=== PATIENT | female | born 1980 | race Caucasian/White ===

== ENCOUNTER 2017-04-15 02:12 | Emergency (ER) ==
[2017-04-15] MEDS ORDERED: LIDOCAINE 1 % AMP 5 ML (SUTURES) SUBCUT STA (02:14)
[2017-04-15] MEDS ORDERED: TETANUS DIPHTHERIA TOXOIDS IM ONE (02:16)
[2017-04-15 02:19] VITALS: BP 104/71; TEMP 98.4; BMI 25.0
--- NOTE | 2017-04-15 02:28 | ED.PDOC ---
General ED Provider: Dr. ESEQUIEL CARTY-ER Chief Complaint: Laceration Stated Complaint: i accidentally stabbed my thigh with a steak knife Time Seen by Physician: 02:26 Mode of Arrival: Walk-In Information Source: Patient Exam Limitations: No limitations Primary Care Provider: ARIELLE [facility]CON[facility] Nursing and Triage Documentation Reviewed and Agree: Yes Skin Complaint Exam - Laceration/Lower Ext. Complaint/Exam Location of Injury: Right, Thigh Mechanism of Injury: Laceration Onset/Duration: 1hr Symptoms Are: Still present Initial Severity: Mild Current Severity: Mild Aggravating: Movement Alleviating: Compression Associated Signs and Symptoms: Denies: Fever, Chills, Erythema, Numbness, Tingling Differential Diagnoses: Laceration Review of Systems - Review Of Systems Constitutional: Reports: No symptoms Eyes: Reports: No symptoms Ears, Nose, Mouth, Throat: Reports: No symptoms Respiratory: Reports: No symptoms Cardiac: Reports: No symptoms GI: Reports: No symptoms : Reports: No symptoms Musculoskeletal: Reports: No symptoms Skin: Reports: No symptoms Neurological: Reports: No symptoms Endocrine: Reports: No symptoms Hematologic/Lymphatic: Reports: No symptoms All Other Systems: Reviewed and Negative Past Medical History - Past Medical History Previously Healthy: Yes Endocrine: Reports: Dyslipidemia Cardiovascular: Reports: None Respiratory: Reports: None Hematological: Reports: None Gastrointestinal: Reports: None Genitourinary: Reports: None Neuro/Psych: Reports: None Musculoskeletal: Reports: None Cancer: Reports: None Last Menstrual Period: 5 yrs ago - Surgical History General Surgical History: Reports: Tubal ligation, Tonsillectomy, Adenoidectomy , Unknown - Family History Family History: Reports: Unknown - Social History Smoking Status: Current every day smoker, Heavy tobacco smoker Hx Substance Use: No Alcohol Screening: Occasionally Lives: With family - Immunizations Tetanus Shot up to Date: Yes (received at clinic last year) Physical Exam - Physical Exam Appearance: Well-appearing, No pain distress, Well-nourished Pain Distress: Mild Eyes: CAMRYN, EOMI, Conjunctiva clear ENT: Ears normal, Nose normal, Oropharynx normal Neck: Supple Respiratory: Airway patent, Breath sounds clear, Breath sounds equal, Respirations nonlabored Cardiovascular: RRR GI/: Soft, Nontender, No masses, Bowel sounds normal, No Organomegaly Musculoskeletal: Normal strength Skin: Warm, Dry, Normal color Neurological: Sensation intact, Motor intact, Reflexes intact, Cranial nerves intact, Alert, Oriented Psychiatric: Affect appropriate, Mood appropriate Procedures - Laceration/Wound Repair No standard instances Wound Description: Linear Wound Length (cm): 1cm right thigh Wound Explored: Clean Wound Irrigated: No Wound Prep: Hibiclens Anesthesia: Lidocaine Wound Repaired With: Sutures Suture Size and Type: 2 4.0 prolene Number of Sutures: 2 Layer Closure?: No Sterile Dressing Applied?: Yes Splint Applied?: No Sling Applied?: No Critical Care Note - Critical Care Note Total Time (mins): 0 Course - Course Orders, Labs, Meds: Orders Category Date Time Status Lidocaine HCl/Pf [Lidocaine 1 % Amp 5 ml (Sutures)] MEDS 04/15/17 02:14 Discontinued 5 ml SUBCUT ONCE STA Tetanus, Diphtheria Tox,Adult [Tetanus Diphtheria MEDS 04/15/17 02:16 Once Toxoids] 0.5 ml IM .ONCE ONE Medications Discontinued Medications Generic Name Dose Route Start Last Admin Trade Name Freq PRN Reason Stop Dose Admin Lidocaine HCl 5 ml 04/15/17 02:14 04/15/17 02:24 Lidocaine 1 % Amp 5 Ml (Sutures) SUBCUT 04/15/17 02:15 5 ml ONCE STA Administration Tetanus/Diphtheria Toxoids 0.5 ml 04/15/17 02:16 Tetanus Diphtheria Toxoids IM 04/15/17 02:17 .ONCE ONE Vital Signs: Temp Pulse Resp BP Pulse Ox 04/15/17 02:13 98.4 F 70 20 104/71 97 Departure - Departure Time of Disposition: 02:28 Disposition: HOME SELF-CARE Discharge Problem: Laceration - injury Instructions: Laceration (ED), Care For Your Stitches (ED) Condition: Good Pt referred to PMD for follow-up: Yes Additional Instructions: suture care--out in 7 days--return if any signs of infection Allergies/Adverse Reactions: Allergies pseudoephedrine HCl [From Sudafed] Adverse Reaction (Verified 04/15/17 02:20) STATES FEELS NUMBNESS AND TINGLING WHEN SHE TAKES Home Medications: Ambulatory Orders Ibuprofen 800 mg PO PRN 03/18/17 Disposition Discussed With: Patient
== END 2017-04-15 02:34 | disposition home or self-care (01) ==
LOC: ED 02:12
DX: S71.111A Laceration without foreign body, right thigh, initial encounter (principal); W26.0XXA Contact with knife, initial encounter; F17.210 Nicotine dependence, cigarettes, uncomplicated
CPT/HCPCS: 99283

== ENCOUNTER 2017-06-25 23:31 | Emergency (ER) ==
[2017-06-25 23:32] VITALS: BMI 25.0
[2017-06-25 23:42] VITALS: BP 135/74; TEMP 98.7
[2017-06-25] MEDS ORDERED: SODIUM CHLORIDE 1,000 ML IV STA (23:54)
[2017-06-25] MEDS ORDERED: ZOFRAN 4 MG/2 ML IVP STA (23:55)
[2017-06-25] MEDS ORDERED: MORPHINE 2 MG/ML SYRINGE IVP STA (23:55)
[2017-06-26 00:11] LABS: BASOPHILS % (AUTO) 0.4 % (0.0-3.0); EOSINOPHILS # (AUTO) 0.2 K/ul (0.0-0.7); EOSINOPHILS % (AUTO) 1.9 % (0.0-7.0); HEMATOCRIT 36.2 % (37.0-47.0); HEMOGLOBIN 12.7 g/dl (12.0-16.0); IMMATURE GRANULOCYTE % (AUTO) 0.3 % (0.0-5.0); LYMPHOCYTES # (AUTO) 3.4 K/uL (0.60-3.4); LYMPHOCYTES % (AUTO) 31.7 (10.0-50.0); MEAN CORPUSCULAR HEMOGLOBIN 30.4 pg (27.0-31.0); MEAN CORPUSCULAR HGB CONC 35.1 (31.8-35.4); MEAN CORPUSCULAR VOLUME 86.6 fl (81.0-99.0); MONOCYTES # (AUTO) 0.7 K/uL (0.4-2.0); MONOCYTES % (AUTO) 6.9 (0-10); NEUTROPHILS # (AUTO) 6.3 K/ul (2.0-6.9); NEUTROPHILS % (AUTO) 58.8; PLATELET COUNT 230 10^3/uL (140-440); RED BLOOD COUNT 4.18 10^6/ul (4.20-5.40); WHITE BLOOD COUNT 10.71 K/ul (4.6-10.2)
[2017-06-26 00:18] LABS: BILIRUBIN,URINE Negative (NEGATIVE); KETONES,URINE Negative (NEGATIVE); LEUKOCYTE ESTERASE ,URINE Negative (NEGATIVE); NITRITE,URINE Negative (NEGATIVE); PROTEIN,URINE Negative (NEGATIVE); URINE, BLOOD Negative (NEGATIVE)
[2017-06-26 00:19] LABS: ADD URINE MICROSCOPIC NO
[2017-06-26 00:26] LABS: SERUM PREGNANCY INTERNAL QC INTERNAL QC VALID
[2017-06-26 00:44] LABS: ERYTHROCYTE SEDIMENTATION RATE 16 mm/hr (0-20); ESR INTERNAL QC INTERNAL QC VALID
[2017-06-26 00:56] LABS: ALBUMIN 3.3 g/dL (3.4-5.0); ALBUMIN/GLOBULIN RATIO 1.1; ANION GAP 18.9; BILIRUBIN,TOTAL 0.15 mg/dL (0.00-1.20); BUN/CREATININE RATIO 19.76; CALCIUM 9.1 mg/dL (8.2-10.2); CREATININE 0.86 mg/dL (0.60-1.30); POTASSIUM 3.9 mmol/L (3.5-5.10); TOTAL PROTEIN 6.3 g/dL (6.4-8.2)
--- NOTE | 2017-06-26 01:45 | CT ---
Exam: CT of the abdomen and pelvis without and with contrast History: Right lower quadrant pain Technique: [address] of the abdomen and pelvis without and with intravascular contrast FINDINGS: The lung bases are clear. The gallbladder appears normal. Kidneys and proximal collecting system are unremarkable. The appendix is normal. Inflammation of the right colonic mesentery and t race fluid in the right paracolic gutter. Central offending saccular diverticula is present. Right colonic diverticulosis noted. Trace atherosclerotic calcification of the aorta. Pelvic genitourinary structures appear normal. Pelvic bowel loops are unremarkable. No inflammatory change in the pelvic fat. No acute abnormality of the abdominal or pelvic skeleton. Impression: 1. Right colonic diverticulitis. No evidence of abscess or free intraperitoneal gas.
--- NOTE | 2017-06-26 01:59 | ED.PDOC ---
General ED Provider: Dr. ESEQUIEL CARTY-ER Chief Complaint: Abdominal Pain Stated Complaint: gwendolyn been hurting Time Seen by Physician: 23:35 Mode of Arrival: Walk-In Information Source: Patient Exam Limitations: No limitations [facility] and T[facility] Documentation Reviewed and Agree: Yes GI Complaint Exam - Abdominal Pain Complaint/Exam Onset: Gradual Duration: several days Symptoms Are: Still present Timing: Intermittent Initial Severity: Mild Current Severity: Mild Location of Pain: RLQ Character: Reports: Dull, Aching Alleviating: Reports: None Associated Signs and Symptoms: Denies: Diaphoresis, Fever, Cough, Chest pain, Dizziness, Back pain, Constipation, Blood in stool, Dysuria, Urinary frequency, Decreased urine output, Decreased appetite, Vaginal bleeding, Vaginal discharge , Nausea, Vomiting, Diarrhea, Sore throat, Decreased activity AAA Risk Factors: Reports: None Patient Rh Status: Unknown Abdominal Findings: Present: None Review of Systems - Review Of Systems Constitutional: Reports: No symptoms Eyes: Reports: No symptoms Ears, Nose, Mouth, Throat: Reports: No symptoms Respiratory: Reports: No symptoms Cardiac: Reports: No symptoms GI: Reports: Abdominal pain : Reports: No symptoms Musculoskeletal: Reports: No symptoms Skin: Reports: No symptoms Neurological: Reports: No symptoms Endocrine: Reports: No symptoms Hematologic/Lymphatic: Reports: No symptoms All Other Systems: Reviewed and Negative Past Medical History - Past Medical History Previously Healthy: Yes Endocrine: Reports: Dyslipidemia Cardiovascular: Reports: None Respiratory: Reports: None Hematological: Reports: None Gastrointestinal: Reports: None Genitourinary: Reports: None Neuro/Psych: Reports: None Musculoskeletal: Reports: None Cancer: Reports: None Last Menstrual Period: PRESENTLY - Surgical History General Surgical History: Reports: Tubal ligation, Tonsillectomy, Adenoidectomy , Unknown - Family History Family History: Reports: Unknown - Social History Smoking Status: Current every day smoker, Heavy tobacco smoker Hx Substance Use: No Alcohol Screening: None Lives: With family - Immunizations Tetanus Shot up to Date: Yes Physical Exam - Physical Exam Appearance: Well-appearing, No pain distress, Well-nourished Pain Distress: Mild Eyes: CAMRYN, EOMI, Conjunctiva clear ENT: Ears normal, Nose normal, Oropharynx normal Neck: Supple Respiratory: Airway patent, Breath sounds clear, Breath sounds equal, Respirations nonlabored Cardiovascular: RRR GI/: Soft, Nontender, No masses, Bowel sounds normal, No Organomegaly Musculoskeletal: Normal strength, ROM intact, No edema, No calf tenderness Skin: Warm Neurological: Sensation intact Psychiatric: Affect appropriate Interpretation - Radiology Interpretation Radiology Interpretation By: Radiologist Radiology Results: Negative Exam Interpreted: CT Scan Critical Care Note - Critical Care Note Total Time (mins): 0 Course - Course Hematology/Chemistry: 06/26/17 00:05 06/26/17 00:05 Orders, Labs, Meds: Lab Review 06/26/17 00:05 WBC 10.71 H RBC 4.18 L Hgb 12.7 Hct 36.2 L MCV 86.6 MCH 30.4 MCHC 35.1 RDW Coeff of Trav 13.4 Plt Count 230 Immature Gran % (Auto) 0.3 Neut % (Auto) 58.8 Lymph % (Auto) 31.7 [place] % (Auto) 6.9 Eos % (Auto) 1.9 Baso % (Auto) 0.4 Immature Gran # (Auto) 0.0 Neut # 6.3 Lymph # 3.4 [place] # 0.7 Eos # 0.2 Baso # 0.0 ESR 16 Sodium 142 Potassium 3.9 Chloride 106 Carbon Dioxide 21 Anion Gap 18.9 BUN 17 Creatinine 0.86 Estimated GFR (MDRD) 76.00 BUN/Creatinine Ratio 19.76 Glucose 103 Calcium 9.1 Total Bilirubin 0.15 AST 14 L ALT 13 Alkaline Phosphatase 25 L Total Protein 6.3 L Albumin 3.3 L Globulin 3.0 Albumin/Globulin Ratio 1.10 Amylase 53 Lipase 29 Serum , Qual Negative Urine Color Yellow Urine Clarity Clear Urine pH 5.0 Ur Specific [place] 1.025 Urine Protein Negative Urine Glucose (UA) Negative Urine Ketones Negative Urine Blood Negative Urine Nitrite Negative Urine Bilirubin Negative Urine Urobilinogen 0.2 Ur Leukocyte Esterase Negative Orders Category Date Time Status NPO REMINDER: IMAGING ONCE CARE 06/25/17 23:55 Completed ED IV/MEDIPORT/POWERPORT .ONCE EMERGENCY 06/25/17 23:54 Active AMYLASE Stat LAB 06/25/17 23:54 Completed CBC W/ AUTO DIFF Stat LAB 06/25/17 23:54 Completed COMPREHENSIVE METABOLIC PANEL Stat LAB 06/25/17 23:54 Completed ESR Stat LAB 06/25/17 23:54 Completed LIPASE Stat LAB 06/25/17 23:54 Completed SERUM Stat LAB 06/25/17 23:54 Completed URINALYSIS C & S IF INDICATED Stat LAB 06/26/17 00:05 Completed 0.9 % Sodium Chloride [Saline Flush] MEDS 06/25/17 23:54 Ordered 1 syr IVF PRN PRN Morphine Sulfate [Morphine 2 mg/ml Syringe] MEDS 06/25/17 23:55 Discontinued 2 mg IVP ONCE STA Ondansetron HCl/Pf [Zofran 4 mg/2 ml] MEDS 06/25/17 23:55 Discontinued 4 mg IVP ONCE STA Sodium Chloride 0.9% [Sodium Chloride] 1,000 ml MEDS 06/25/17 23:54 Active IV 100 mls/hr CT ABDOMEN/PELVIS W/WO CONTRAS Stat RADS 06/25/17 23:54 Completed Medications Generic Name Dose Route Start Last Admin Trade Name Freq PRN Reason Stop Dose Admin Sodium Chloride 1,000 mls @ 100 mls/hr 06/25/17 23:54 06/26/17 00:12 Sodium Chloride IV 06/26/17 09:53 100 mls/hr .Q10H STA Administration Sodium Chloride 1 syr 06/25/17 23:54 06/26/17 00:18 Saline Flush IVF 1 syr PRN PRN Administration To flush IV Discontinued Medications Generic Name Dose Route Start Last Admin Trade Name Freq PRN Reason Stop Dose Admin Morphine Sulfate 2 mg 06/25/17 23:55 06/26/17 00:14 Morphine 2 Mg/Ml Syringe IVP 06/25/17 23:56 2 mg ONCE STA Administration Ondansetron HCl 4 mg 06/25/17 23:55 06/26/17 00:13 Zofran 4 Mg/2 Ml IVP 06/25/17 23:56 4 mg ONCE STA Administration Vital Signs: Temp Pulse Resp BP Pulse Ox 06/25/17 23:32 98.7 F 69 18 135/74 98 Departure - Departure Time of Disposition: 01:59 Disposition: HOME SELF-CARE Discharge Problem: Diverticulitis Qualifiers: Diverticulitis site: unspecified part of intestinal tract Diverticulitis bleeding: without bleeding Diverticulitis complication: without perforation or abscess Qualifier Code: (K57.92) Diverticulitis of intestine, part unspecified, without perforation or abscess without bleeding Instructions: Diverticulitis (ED) Condition: Good Pt referred to PMD for follow-up: Yes Additional Instructions: cipro 500mg bid x 7days--flagyl 500mg tid x 7 days--librax q 8hrs prn pain #15-- f/u with clinic next week Allergies/Adverse Reactions: Allergies pseudoephedrine HCl [From Sudafed] Adverse Reaction (Verified 06/25/17 23:43) STATES FEELS NUMBNESS AND TINGLING WHEN SHE TAKES Home Medications: Ambulatory Orders 1 [No Reported Medications] 06/25/17 Disposition Discussed With: Patient
== END 2017-06-26 02:09 | disposition home or self-care (01) ==
LOC: ED 23:31
DX: K57.92 Diverticulitis of intestine, part unspecified, without perforation or abscess without bleeding (principal); F17.210 Nicotine dependence, cigarettes, uncomplicated
CPT/HCPCS: 36415; 80053; 81001; 82150; 83690; 84703; 85025; 85651; 96361; 96374; 96375; 99283

== ENCOUNTER 2018-03-20 22:31 | Emergency (ER) ==
[2018-03-20 22:49] VITALS: BP 126/76; TEMP 97.5; BMI 25.2
[2018-03-20] MEDS ORDERED: SOLU-MEDROL 125 MG IM STA (23:01)
[2018-03-20] MEDS ORDERED: LIDOCAINE HCL 1% SDV IM STA (23:01)
[2018-03-20] MEDS ORDERED: ROCEPHIN IM STA (23:01)
[2018-03-20] MEDS ORDERED: BENADRYL PO STA (23:02)
--- NOTE | 2018-03-20 23:03 | ED.PDOC ---
General ED Provider: Dr. DALLIN MATTA Chief Complaint: Bite Stated Complaint: Patient is a 37 year old female who comes to the Er with a possible bite on the right arm and right heel. States it is now itiching slightly raised and read. Time Seen by Physician: 23:01 Mode of Arrival: Walk-In Information Source: Patient Exam Limitations: No limitations [facility] Nursing and Triage Documentation Reviewed and Agree: No Reviewed sepsis parameters & appropriate labs ordered?: No System Inflammatory Response Syndrome: Not Applicable Sepsis Protocol: For patient's 13 years and over: Temp is 96.8 and below OR 101 and greater Pulse >90 BPM Resp >20/minute Acutely Altered Mental Status Are patient's symptoms suggestive of a new infection, such as: -Pneumonia -Skin, Soft Tissue -Endocarditis -UTI -Bone, Joint Infection -Implantable Device -Acute Abdominal Infection -Wound Infection -Meningitis -Blood Stream Catheter Infection -Unknown System Inflammatory Response Syndrome: Not Applicable Skin Complaint Exam - Skin Rash/Itching Complaint/Exam Onset/Duration: 2 days Symptoms Are: Still present Initial Severity: Moderate Current Severity: Moderate Location: Rigth arm- Triceps area and right heel Potential Exposures: Reports: Insect bite Prior Treatment: Bendryl 3 pm Aggravating: Reports: Showering Associated Signs and Symptoms: Denies: Difficulty breathing, Fever, Chills Skin Findings: Present: Urticaria, Maculae Body Picture: 1 - swelling raised and itchy. Differential Diagnoses: Allergic Reaction, Contact Dermatitis, Drug Rash, Urticaria Review of Systems - Review Of Systems Constitutional: Reports: No symptoms Eyes: Reports: No symptoms Ears, Nose, Mouth, Throat: Reports: No symptoms Respiratory: Reports: No symptoms Cardiac: Reports: No symptoms GI: Reports: No symptoms : Reports: No symptoms Musculoskeletal: Reports: No symptoms Skin: Reports: Rash Neurological: Reports: No symptoms Endocrine: Reports: No symptoms Hematologic/Lymphatic: Reports: No symptoms All Other Systems: Reviewed and Negative Past Medical History - Past Medical History Previously Healthy: Yes Endocrine: Reports: Dyslipidemia Cardiovascular: Reports: None Respiratory: Reports: None Hematological: Reports: None Gastrointestinal: Reports: GERD, Other (H pyroli ) Genitourinary: Reports: None Neuro/Psych: Reports: Anxiety Musculoskeletal: Reports: None Cancer: Reports: None Last Menstrual Period: 1 week ago - Surgical History General Surgical History: Reports: Tubal ligation, Tonsillectomy, Adenoidectomy , Other (Breast augmentation. Uterine ablation, D and C ) - Family History Family History: Reports: Unknown - Social History Smoking Status: Current every day smoker, Heavy tobacco smoker Hx Substance Use: No Alcohol Screening: None - Immunizations Tetanus Shot up to Date: Yes Physical Exam - Physical Exam Appearance: Ill-appearing Ill-appearing: Moderate Pain Distress: Mild Eyes: CAMRYN, EOMI, Conjunctiva clear ENT: Ears normal, Nose normal, Oropharynx normal Neck: Supple Respiratory: Airway patent, Breath sounds clear, Breath sounds equal, Respirations nonlabored Cardiovascular: RRR GI/: Soft, Nontender, No masses, Bowel sounds normal, No Organomegaly Musculoskeletal: Normal strength, ROM intact, No edema, No calf tenderness Skin: Warm, Dry Psychiatric: Anxious Critical Care Note - Critical Care Note Total Time (mins): 0 Course - Course Orders, Labs, Meds: Orders Category Date Time Status Ceftriaxone Sodium [Rocephin] MEDS 03/20/18 23:01 Discontinued 1 gm IM ONCE STA Diphenhydramine HCl [Benadryl] MEDS 03/20/18 23:02 Discontinued 50 mg PO ONCE STA Lidocaine HCl/Pf [Lidocaine HCl 1% Sdv] MEDS 03/20/18 23:01 Discontinued 2.1 ml IM ONCE STA Methylprednisolone Sod Succ/Pf [Solu-Medrol 125 mg] MEDS 03/20/18 23:01 Discontinued 125 mg IM ONCE STA Medications Discontinued Medications Generic Name Dose Route Start Last Admin Trade Name Freq PRN Reason Stop Dose Admin Ceftriaxone Sodium 1 gm 03/20/18 23:01 03/20/18 23:11 Rocephin IM 03/20/18 23:02 1 gm ONCE STA Administration Diphenhydramine HCl 50 mg 03/20/18 23:02 03/20/18 23:09 Benadryl PO 03/20/18 23:03 50 mg ONCE STA Administration Lidocaine HCl 2.1 ml 03/20/18 23:01 03/20/18 23:11 Lidocaine Hcl 1% Sdv IM 03/20/18 23:02 2.1 ml ONCE STA Administration Methylprednisolone Sodium Succinate 125 mg 03/20/18 23:01 03/20/18 23:11 Solu-Medrol 125 Mg IM 03/20/18 23:02 125 mg ONCE STA Administration Vital Signs: Temp Pulse Resp BP Pulse Ox 03/20/18 22:33 97.5 F L 88 20 126/76 98 Departure - Departure Time of Disposition: 23:30 Disposition: HOME SELF-CARE Discharge Problem: Dermatitis Instructions: Insect Bite or Sting (ED) Condition: Stable Pt referred to PMD for follow-up: Yes IPMP verified?: No Additional Instructions: Take Medication as prescribed Follow up with PCP in 3 days. Prescriptions: Cephalexin [Keflex] 500 mg PO Q8HR #30 capsule Methylprednisolone [Medrol Dosepak] 4 mg PO DIRECTED #1 pkg Allergies/Adverse Reactions: Allergies pseudoephedrine HCl [From Sudafed] Adverse Reaction (Verified 03/20/18 22:39) STATES FEELS NUMBNESS AND TINGLING WHEN SHE TAKES Home Medications: Ambulatory Orders Cephalexin [Keflex] 500 mg PO Q8HR #30 capsule 03/20/18 Methylprednisolone [Medrol Dosepak] 4 mg PO DIRECTED #1 pkg 03/20/18 Disposition Discussed With: Patient, Family
== END 2018-03-20 23:25 | disposition home or self-care (01) ==
LOC: ED 22:31
DX: L30.9 Dermatitis, unspecified (principal); S40.861A Insect bite (nonvenomous) of right upper arm, initial encounter; S90.861A Insect bite (nonvenomous), right foot, initial encounter; W57.XXXA Bitten or stung by nonvenomous insect and other nonvenomous arthropods, initial encounter; F17.210 Nicotine dependence, cigarettes, uncomplicated
CPT/HCPCS: 96372; 99282

== ENCOUNTER 2019-04-14 09:59 | Emergency (ER) ==
[2019-04-14 10:12] VITALS: BP 147/85; TEMP 98.1; BMI 22.2
[2019-04-14] MEDS ORDERED: ATIVAN IM STA (11:04)
--- NOTE | 2019-04-14 12:05 | ED.PDOC ---
General ED Provider: Dr. CASSIE BARNARD Chief Complaint: Non-specific Complaint Stated Complaint: anxiety Time Seen by Physician: 10:00 Mode of Arrival: Walk-In Information Source: Patient Exam Limitations: No limitations Primary Care Provider: ASHLEY BULL Nursing and Triage Documentation Reviewed and Agree: Yes Does patient meet sepsis criteria?: No System Inflammatory Response Syndrome: Not Applicable Sepsis Protocol: For patient's 13 years and over: Temp is 96.8 and below OR 101 and greater Pulse >90 BPM Resp >20/minute Acutely Altered Mental Status Are patient's symptoms suggestive of a new infection, such as: -Pneumonia -Skin, Soft Tissue -Endocarditis -UTI -Bone, Joint Infection -Implantable Device -Acute Abdominal Infection -Wound Infection -Meningitis -Blood Stream Catheter Infection -Unknown Psychological Complaint Exam - Psychiatric Complaint/Exam Patient Complains Of: Present: Depression, Other (panic attack) Onset/Duration: today Symptoms Are: Still present Timing: Intermittent Episodes Lasting: Minutes Initial Severity: Moderate Current Severity: Moderate Character: Present: Depressed, Fearful, Anxious, Frustrated Aggravating: Reports: Recent stress Associated Signs And Symptoms: Reports: Sleep disturbance, Appetite change. Denies: Hostile, Confused, Hallucinating, Paranoid behavior Related History: Denies: Suicidal thoughts, Suicidal plan, Suicidal gestures, Homicidal thoughts, Homicidal plan, Homicidal gestures, Prior attempts, Recent stressors, Drug ingestion Completed Suicide Risk Factors: None Patient Accompanied By: Family Patient In Custody Of Police: No Social Withdrawal Present: No Social Isolation Present: No Prior Suicide Attempt: No Injury From Prior Suicide Attempt: No Related Surgical History: Reports: None Patient Uncooperative For Exam: No Mood: Present: Anxious Appearance: Present: Clean Thought Process: Present: Logical Insight: Present: Good Memory: Intact Judgement: Normal Danger To Others: No Patient Medically Stable For: Psych evaluation Differential Diagnoses: Anxiety Review of Systems - Review Of Systems Constitutional: Reports: No symptoms Eyes: Reports: No symptoms Ears, Nose, Mouth, Throat: Reports: No symptoms Respiratory: Reports: No symptoms Cardiac: Reports: No symptoms GI: Reports: No symptoms : Reports: No symptoms Musculoskeletal: Reports: No symptoms Skin: Reports: No symptoms Neurological: Reports: Anxiety, Emotional problems Endocrine: Reports: No symptoms Hematologic/Lymphatic: Reports: No symptoms All Other Systems: Reviewed and Negative Past Medical History - Past Medical History Previously Healthy: Yes Endocrine: Reports: Dyslipidemia Cardiovascular: Reports: None Respiratory: Reports: None Hematological: Reports: None Gastrointestinal: Reports: GERD, Other (H pyroli ) Genitourinary: Reports: None Neuro/Psych: Reports: Anxiety Musculoskeletal: Reports: None Cancer: Reports: None Last Menstrual Period: 2 weeks - Surgical History General Surgical History: Reports: Tubal ligation, Tonsillectomy, Adenoidectomy , Other (Breast augmentation. Uterine ablation, D and C ) - Family History Family History: Reports: Unknown - Social History Smoking Status: Current every day smoker, Heavy tobacco smoker Hx Substance Use: No Alcohol Screening: Occasionally Physical Exam - Physical Exam Appearance: Well-appearing, No pain distress, Well-nourished Eyes: CAMRYN, EOMI, Conjunctiva clear ENT: Ears normal, Nose normal, Oropharynx normal Respiratory: Airway patent, Breath sounds clear, Breath sounds equal, Respirations nonlabored Cardiovascular: RRR, Pulses normal, No rub, No murmur GI/: Soft, Nontender, No masses, Bowel sounds normal, No Organomegaly Musculoskeletal: Normal strength, ROM intact, No edema, No calf tenderness Skin: Warm, Dry, Normal color Neurological: Sensation intact, Motor intact, Reflexes intact, Cranial nerves intact, Alert, Oriented Psychiatric: Affect appropriate, Mood appropriate Critical Care Note - Critical Care Note Total Time (mins): 0 Course - Course Hematology/Chemistry: 04/14/19 11:18 04/14/19 11:18 Orders, Labs, Meds: Lab Review 04/14/19 04/14/19 04/14/19 11:12 11:18 11:18 WBC 8.51 RBC 4.69 Hgb 14.5 Hct 42.1 MCV 89.8 MCH 30.9 MCHC 34.4 RDW Coeff of Trav 13.2 Plt Count 236 Immature Gran % (Auto) 0.1 Neut % (Auto) 65.9 Lymph % (Auto) 26.0 [place] % (Auto) 7.1 Eos % (Auto) 0.4 Baso % (Auto) 0.5 Immature Gran # (Auto) 0.0 Neut # (Auto) 5.6 Lymph # (Auto) 2.2 [place] # (Auto) 0.6 Eos # (Auto) 0.0 Baso # (Auto) 0.0 Sodium 138.6 Potassium 4.41 Chloride 105.6 Carbon Dioxide 22.1 Anion Gap 15.31 BUN 18.8 H Creatinine 0.70 Estimated GFR (MDRD) 95.00 BUN/Creatinine Ratio 26.85 Glucose 115.1 H Calcium 10.00 Total Bilirubin 0.65 AST 22.6 ALT 15.2 Alkaline Phosphatase 26.8 L Total Protein 7.80 Albumin 4.79 Globulin 3.01 Albumin/Globulin Ratio 1.59 Serum , Qual Urine Color Yellow Urine Clarity Clear Urine pH 5.5 Ur Specific [place] 1.020 Urine Protein Negative Urine Glucose (UA) Negative Urine Ketones Negative Urine Blood Negative Urine Nitrite Negative Urine Bilirubin Negative Urine Urobilinogen 0.2 Ur Leukocyte Esterase Negative Salicylate Level mg/dL < 1.00 Urine Opiates Screen Ur Oxycodone Screen Urine Methadone Screen Ur Propoxyphene Screen Acetaminophen < 10.0 L Ur Barbiturates Screen U Tricyclic Antidepress Ur Phencyclidine Scrn Ur Amphetamine Screen U Methamphetamines Scrn U Benzodiazepines Scrn Urine Cocaine Screen U Cannabinoids Screen Plasma/Serum Alcohol < 10.0 04/14/19 04/14/19 11:18 11:18 WBC RBC Hgb Hct MCV MCH MCHC RDW Coeff of Trav Plt Count Immature Gran % (Auto) Neut % (Auto) Lymph % (Auto) [place] % (Auto) Eos % (Auto) Baso % (Auto) Immature Gran # (Auto) Neut # (Auto) Lymph # (Auto) [place] # (Auto) Eos # (Auto) Baso # (Auto) Sodium Potassium Chloride Carbon Dioxide Anion Gap BUN Creatinine Estimated GFR (MDRD) BUN/Creatinine Ratio Glucose Calcium Total Bilirubin AST ALT Alkaline Phosphatase Total Protein Albumin Globulin Albumin/Globulin Ratio Serum , Qual Negative Urine Color Urine Clarity Urine pH Ur Specific [place] Urine Protein Urine Glucose (UA) Urine Ketones Urine Blood Urine Nitrite Urine Bilirubin Urine Urobilinogen Ur Leukocyte Esterase Salicylate Level mg/dL Urine Opiates Screen Negative Ur Oxycodone Screen Negative Urine Methadone Screen Negative Ur Propoxyphene Screen Negative Acetaminophen Ur Barbiturates Screen Negative U Tricyclic Antidepress Negative Ur Phencyclidine Scrn Negative Ur Amphetamine Screen Negative U Methamphetamines Scrn Negative U Benzodiazepines Scrn Negative Urine Cocaine Screen Negative U Cannabinoids Screen Positive Plasma/Serum Alcohol Orders Category Date Time Status EKG-(ED ONLY) Stat CARDIO 04/14/19 11:03 Completed ED LEGAL ADVISOR APPLIED ONCE EMERGENCY 04/14/19 11:03 Active Mental Health Consult [ED MENTAL HEALTH CONSULT] .ONCE EMERGENCY 04/14/19 11: 52 Ordered ACETAMINOPHEN Stat LAB 04/14/19 11:18 Completed BLOOD ALCOHOL Stat LAB 04/14/19 11:18 Completed CBC W/ AUTO DIFF Stat LAB 04/14/19 11:18 Completed COMPREHENSIVE METABOLIC PANEL Stat LAB 04/14/19 11:18 Completed DRUG SCREEN, URINE, RAPID Stat LAB 04/14/19 11:18 Completed SALICYLATE Stat LAB 04/14/19 11:18 Completed SERUM Stat LAB 04/14/19 11:18 Completed TSH [THYROID STIMULATING HORMONE] Stat LAB 04/14/19 11:18 Received URINALYSIS C & S IF INDICATED Stat LAB 04/14/19 11:12 Completed Lorazepam [Ativan] MEDS 04/14/19 11:04 Discontinued 1 mg IM ONCE STA Medications Discontinued Medications Generic Name Dose Route Start Last Admin Trade Name Freq PRN Reason Stop Dose Admin Lorazepam 1 mg 04/14/19 11:04 04/14/19 11:27 Ativan IM 04/14/19 11:05 1 mg ONCE STA Administration Vital Signs: Temp Pulse Resp BP Pulse Ox 04/14/19 09:59 98.1 F 89 20 147/85 H 99 Departure - Departure Time of Disposition: 12:03 Disposition: HOME SELF-CARE Discharge Problem: Panic attack as reaction to stress Instructions: Panic Attack (ED), Anxiety (ED) Condition: Good Pt referred to PMD for follow-up: Yes IPMP verified?: No Additional Instructions: Please call your Family Physician as soon as possible to schedule a follow-up appointment. Allergies/Adverse Reactions: Allergies pseudoephedrine HCl [From Sudafed] Adverse Reaction (Verified 03/20/18 22:39) STATES FEELS NUMBNESS AND TINGLING WHEN SHE TAKES Home Medications: Ambulatory Orders Lorazepam [Ativan] 0.5 mg PO TID 12 Days tablet 04/14/19 Disposition Discussed With: Patient
== END 2019-04-14 12:22 | disposition home or self-care (01) ==
LOC: ED 09:59
DX: F43.0 Acute stress reaction (principal); F17.210 Nicotine dependence, cigarettes, uncomplicated
CPT/HCPCS: 36415; 80053; 80306; 80307; 81001; 84443; 84703; 85025; 93005; 93010; 96372; 99283

== ENCOUNTER 2019-06-28 08:43 | Outpatient (CLI) ==
--- NOTE | 2019-06-28 09:58 | US ---
EXAM: Left breast ultrasound. History: Left breast mass. Comparison: Bilateral mammogram 06/28/2019 Technique: Multiple sonographic images through the left breast were obtained. Color duplex Doppler was used to interrogate vascular flow. Findings: At 2 o'clock within the anterior left breast 6 cm from nipple there is a 1.0 cm x 0.6 cm x 1.3 cm complicated cyst with internal echoes. This correlates with mammography and with the palpabl e abnormality. Impression: Probably benign left breast complicated cyst. Recommend 6-month follow-up mammogram and ultrasound to document stability. BI-RADS 3, probably benign
--- NOTE | 2019-06-28 09:58 | MAMMO ---
EXAM: Bilateral digital diagnostic mammogram (2-D and 3-D) History: Left breast mass. Findings: MLO and CC views of bilateral breasts demonstrate heterogeneously dense breast parenchyma which can obscure small lesions. CAD was reviewed by the radiologist. Tomosynthesis was performed. There is a mass within the upper-outer quadrant of the left breast. No suspicious microcalcificatio ns. Impression: Indeterminate left breast mass. Recommend further evaluation with ultrasound. BI-RADS 0, incomplete. Needs further evaluation
== END 2019-06-28 08:44 | disposition home or self-care (01) ==
LOC: RAD 08:43
PROVIDERS: ATTEND Obstetrics & Gynecology
DX: N63.21 Unspecified lump in the left breast, upper outer quadrant (principal)